=== PATIENT | male | born 1945 | race Caucasian/White ===

== ENCOUNTER 2020-11-22 11:54 | Observation (INO) | payer MEDICARE ==
[~2020-11-22] VITALS: Ht 177.8 cm; Wt 83.1 kg
[~2020-11-22 11:54] MED LIST: AMLO10TA55 PO; APIX5TAB PO; LOSA100T58 PO; SIMV-43 PO; SODIUM CHLORIDE 0.9% 1,000 ML IV ONE; SODIUM CHLORIDE 0.9% 1,000 ML ONE; TAMS-13 PO
[2020-11-22 12:43] LABS: EOSINOPHILS % (AUTO) 1.7 % (1.0-6.0); HEMATOCRIT 32.2 % (41-53); HEMOGLOBIN 10.4 g/dL (13.5-17.5); LYMPHOCYTES # (AUTO) 1.5 K/uL (1.0-4.8); LYMPHOCYTES % (AUTO) 21.3 % (22.0-44.0); MEAN CORPUSCULAR HEMOGLOBIN 28.4 pg (26.0-34.0); MEAN CORPUSCULAR HGB CONC 32.4 G/dL (31.0-37.0); MEAN CORPUSCULAR VOLUME 88 fL (80-100); MONOCYTES # (AUTO) 0.6 K/uL (0.1-1.0); MONOCYTES % (AUTO) 8.1 % (2.0-9.0); NEUTROPHILS # (AUTO) 4.9 K/uL (1.8-7.7); NEUTROPHILS % (AUTO) 67.9 % (40.0-70.0); PLATELET COUNT (AUTO) 236 K/uL (150-450); RED BLOOD CELL COUNT(AUTO) 3.67 MIL/uL (4.50-5.90); RED CELL DISTRIBUTION WIDTH 16.9 % (11.5-14.5)
[2020-11-22 12:58] LABS: INR 1.1 (0.9-1.1); PROTHROMBIN TIME 11.4 SEC (9.4-11.6)
[2020-11-22 12:59] LABS: CALCIUM, TOTAL 8.9 mg/dL (8.8-10.5); CREATININE 1.94 mg/dL (0.60-1.30)
[2020-11-22] MEDS ORDERED: SODIUM BICARBONATE 50 MEQ/50 ML VIAL ONE (13:14)
[2020-11-22] MEDS ORDERED: LIDOCAINE/PF 1% 30 ML VIAL ONE (13:14)
[2020-11-22] MEDS ORDERED: IOHEXOL 300 MG/ML 150 ML VIAL ONE (13:14)
[2020-11-22] MEDS ORDERED: HEPARIN SODIUM 1000 UNITS/NS 1,000 ML ONE (13:14)
[2020-11-22] MEDS ORDERED: FentaNYL CITRATE PF 100 MCG/2 ML VIAL ONE (13:43)
[2020-11-22] MEDS ORDERED: MIDAZOLAM HCL 2 MG/2 ML VIAL ONE (13:43)
[2020-11-22 13:53] LABS: HEMOGLOBIN A1C 5.5 % (3.8-5.6)
[2020-11-22 14:08] VITALS: BP 187/72
[2020-11-22] MEDS ORDERED: FURO40TA5 PO (14:25)
[2020-11-22] MEDS ORDERED: FentaNYL CITRATE PF 100 MCG/2 ML VIAL IVP ONE ×3 (14:30→15:00)
[2020-11-22] MEDS ORDERED: IOHEXOL 300 MG/ML 150 ML VIAL IARTER ONE (14:30)
[2020-11-22] MEDS ORDERED: HEPARIN SODIUM 1000 UNITS/NS 1,000 ML IARTER ONE (14:30)
[2020-11-22] MEDS ORDERED: MIDAZOLAM HCL 2 MG/2 ML VIAL IVP ONE ×2 (14:30→15:00)
[2020-11-22] MEDS ORDERED: LIDOCAINE 1% 30 ML/SOD BICARB 8.4% 4 ML SQ ONE (14:30)
[2020-11-22] MEDS ORDERED: TICAGRELOR 90 MG TABLET ONE (14:33)
[2020-11-22] MEDS ORDERED: HEPARIN SODIUM,PORCINE 5,000 UNITS/ML VIAL IVP ONE ×3 (14:45→15:15)
[2020-11-22] MEDS ORDERED: SODIUM CHLORIDE 0.9% 250 ML IV ONE ×2 (14:45)
[2020-11-22] MEDS ORDERED: HydrALAZINE HCL 20 MG/ML VIAL ONE (14:56)
[2020-11-22] MEDS ORDERED: TICAGRELOR 90 MG TABLET PO ONE (15:00)
[2020-11-22] MEDS ORDERED: HydrALAZINE HCL 20 MG/ML VIAL IVP ONE (15:00)
[2020-11-22 15:03] VITALS: BP 106/55
[2020-11-22] MEDS ORDERED: ACETAMINOPHEN 325 MG TABLET PO PRN (18:30)
[2020-11-22] MEDS ORDERED: SODIUM CHLORIDE 0.9% 1,000 ML IV ONE (18:30)
[2020-11-22] MEDS ORDERED: ATORVASTATIN CALCIUM 40 MG TABLET PO SCH (21:00)
[2020-11-22] MEDS ORDERED: TICAGRELOR 90 MG TABLET PO SCH (21:00)
[2020-11-22 22:00] VITALS: BP 133/67
[2020-11-23] VITALS: BP 143/78
[2020-11-23] MEDS: CARVEDILOL 6.25 MG TABLET PO SCH ×2 (00:11→09:12)
[2020-11-23] MEDS: HydrALAZINE HCL 25 MG TABLET PO SCH ×2 (00:11→09:12)
[2020-11-23] MEDS: TICAGRELOR 90 MG TABLET PO SCH ×2 (00:11→09:13)
[2020-11-23] MEDS: DOCUSATE SODIUM 100 MG CAPSULE PO SCH ×2 (00:12→09:00)
[2020-11-23 00:30] VITALS: BP 128/75
[2020-11-23 04:51] VITALS: BP 111/62
[2020-11-23 07:10] LABS: CALCIUM, TOTAL 9.3 mg/dL (8.8-10.5); CREATININE 1.78 mg/dL (0.60-1.30)
[2020-11-23 07:42] VITALS: BP 140/84
[2020-11-23] MEDS ORDERED: APIXABAN 2.5 MG TABLET PO SCH (09:00)
[2020-11-23] MEDS ORDERED: SIMVASTATIN 20 MG TABLET PO SCH (09:00)
[2020-11-23] MEDS ORDERED: FAMOTIDINE 20 MG TABLET PO SCH (09:00)
[2020-11-23] MEDS ORDERED: TAMSULOSIN HCL 0.4 MG CAPSULE PO SCH (09:00)
[2020-11-23 10:30] VITALS: BP 132/78
[2020-11-23] MEDS ORDERED: TAMS-13 PO (11:26)
[2020-11-23] MEDS ORDERED: HYDR25TA84 PO (11:26)
[2020-11-23] MEDS ORDERED: TICA90TA PO (11:26)
[2020-11-23] MEDS ORDERED: CARV6 PO (11:26)
[2020-11-23] MEDS ORDERED: ATOR40TA71 PO (11:26)
== END 2020-11-23 11:55 | disposition home or self-care (01) ==
LOC: CATHLAB 11:54 → INTOOBSV 11:55 → 5S 11:55 → OBSVTOIN 11:55 → 5S 16:34 → UNDOADMIN 16:34
PROVIDERS: ADMIT Internal Medicine Interventional Cardiology; ATTEND Internal Medicine Interventional Cardiology
DX: I25.119 Atherosclerotic heart disease of native coronary artery with unspecified angina pectoris (principal); I10 Essential (primary) hypertension; Z86.73 Personal history of transient ischemic attack (TIA), and cerebral infarction without residual deficits; Z79.01 Long term (current) use of anticoagulants; Z79.899 Other long term (current) drug therapy
CPT/HCPCS: 36415 ×2; 80048 ×2; 83036; 85025; 85610; 85730 ×2; 92920; 92928; 93005; 93458; 96360; 96361; 99219 ×2; C1769; C1874; C1887; J0360; J1644; J2250; J3010; J3490 ×2; J7030; Q9967